=== PATIENT | male | born 1960 | race Caucasian/White ===

== ENCOUNTER 2018-12-23 15:03 | Inpatient (IN) | payer OTHER ==
[2018-12-23] VITALS: BP 130/76
[~2018-12-23] VITALS: Ht 190.5 cm; Wt 98.0 kg
[~2018-12-23 15:03] MED LIST: ASPIRIN81 M2 PO
[2018-12-23 15:05] VITALS: BP 115/75
[2018-12-23] MEDS ORDERED: CARVEDILOL3.125 MG PO (15:10)
[2018-12-23] MEDS ORDERED: FLECAINIDE ACET50 M1 PO (15:10)
[2018-12-23] MEDS ORDERED: CLARITIN10 MG PO (15:10)
[2018-12-23 15:26] LABS: ABSOLUTE BASOPHILS 0.1 thou/uL (0.0-0.2); ABSOLUTE EOSINOPHILS 0.3 thou/uL (0.0-0.7); ABSOLUTE LYMPHOCYTES 1.2 thou/uL (0.8-5.3); ABSOLUTE MONOCYTES 0.6 thou/uL (0.0-1.2); ABSOLUTE NEUTROPHILS 4.3 thou/uL (1.6-8.1); BASOPHILS 1.3 %; EOSINOPHILS 4.3 %; HEMATOCRIT 41.1 % (42.0-52.0); HEMOGLOBIN 13.8 gm/dL (14.0-18.0); LYMPHOCYTES 18.8 %; MCH 30.7 pg (26.0-34.0); MCHC 33.5 g/dL (28.0-37.0); MCV 91.6 fL (80.0-100.0); MPV 10.1 fl. (7.2-11.1); NUCLEATED RBCS 0 /100WBC; PLATELET COUNT* 209 thou/uL (150-400); POLYS 66.6 %; RBC 4.49 mil/uL (4.50-6.00); RDW-CV 13.9 % (10.5-14.5); WBC 6.4 thou/uL (4.0-11.0)
[2018-12-23 15:42] LABS: ALBUMIN 3.9 g/dL (3.4-5.0); ALKALINE PHOSPHATASE 89 U/L (46-116); ANION GAP 7 mmol/L (7-16); BUN 26 mg/dL (7-18); CHLORIDE 104 mmol/L (98-107); CO2 30 mmol/L (21-32); CREATININE 1.5 mg/dL (0.6-1.3); GLUCOSE 159 mg/dL (70-99); LIPASE 111 U/L (73-393); MAGNESIUM 2.1 mg/dL (1.8-2.4); NT-PRO BRAIN NAT PEPTIDE 2521 pg/mL (<300); POTASSIUM 3.9 mmol/L (3.5-5.1); SGOT 30 U/L (15-37); SGPT 74 U/L (30-65); SODIUM 141 mmol/L (136-145); TOTAL BILIRUBIN 0.7 mg/dL (<0.1-1.0); TOTAL PROTEIN 6.9 g/dL (6.4-8.2); TROPONIN-I LEVEL <0.06 ng/mL (<0.06)
[2018-12-23 18:32] VITALS: BP 135/86
[2018-12-23 19:05] VITALS: BP 130/87
[2018-12-24] VITALS (16 sets, daily range): BP systolic 105–121; BP diastolic 57–83
[2018-12-24 05:27] LABS: ABSOLUTE BASOPHILS 0.1 thou/uL (0.0-0.2); ABSOLUTE EOSINOPHILS 0.4 thou/uL (0.0-0.7); ABSOLUTE LYMPHOCYTES 1.4 thou/uL (0.8-5.3); ABSOLUTE MONOCYTES 0.5 thou/uL (0.0-1.2); ABSOLUTE NEUTROPHILS 4.1 thou/uL (1.6-8.1); BASOPHILS 0.8 %; EOSINOPHILS 5.7 %; HEMATOCRIT 39.2 % (42.0-52.0); HEMOGLOBIN 13.2 gm/dL (14.0-18.0); LYMPHOCYTES 21.3 %; MCH 30.5 pg (26.0-34.0); MCHC 33.8 g/dL (28.0-37.0); MCV 90.3 fL (80.0-100.0); MONOCYTES 8.4 %; MPV 10.5 fl. (7.2-11.1); NUCLEATED RBCS 0 /100WBC; PLATELET COUNT* 194 thou/uL (150-400); POLYS 63.8 %; RBC 4.34 mil/uL (4.50-6.00); RDW-CV 13.4 % (10.5-14.5); WBC 6.5 thou/uL (4.0-11.0)
[2018-12-24 05:38] LABS: CALCIUM 8.6 mg/dL (8.5-10.1); CREATININE 1.2 mg/dL (0.6-1.3)
--- NOTE | 2018-12-24 11:30 | EKG ---
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 : 1960 Requested By: Bartolome Woods Order Number: [id number] MD: Jayant Brumfield Measurements Intervals [place] Rate: 126 P: 0 GA: 103 QRS: 85 QRSD: 117 T: 222 QT: 302 QTc: 438 Interpretive Statements aflutter variable block pvc Right bundle branch block Nonspecific T abnormalities, lateral leads Compared to ECG 10/18/2012 11:12:48 Ventricular premature complex(es) now present Right bundle-branch block now present T-wave abnormality now present Sinus rhythm no longer present Sinus arrhythmia no longer present Incomplete right bundle-branch block no longer present Electronically Signed On 12-24-2018 11:29:49 CDT by Jayant Brumfield [email or web address] <ELECTRONICALLY SIGNED> By: Jayant Brumfield MD, [facility] 12/24/18 1129 1507 1507 Jayant Brumfield MD, [facility] /EPI
--- NOTE | 2018-12-24 11:31 | EKG ---
[place] [address] ELECTROCARDIOGRAM REPORT Name: KEVIN MUÑOZ Room: [place] [address] ADM IN M.R.#: [id number] Admission: 12/23/18 Attend Phys: Josr Clark MD Discharge: Date of : 60 Report #: [id number] THIS REPORT FOR: //name// 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 : 1960 Requested By: Josr Clark Order Number: [id number] Reading MD: Jayant Brumfield Measurements Intervals [place] Rate: 62 P: 87 [place]: 183 QRS: 79 QRSD: 121 T: 126 QT: 441 QTc: 448 Interpretive Statements Sinus rhythm Consider left atrial enlargement IVCD, consider atypical RBBB Abnormal T, consider ischemia, lateral leads Compared to ECG 10/18/2012 11:12:48 T-wave abnormality now present Possible ischemia now present Sinus arrhythmia no longer present Incomplete right bundle-branch block no longer present Electronically Signed On 12-24-2018 11:31:02 CDT by Jayant Brumfield [email or web address] <ELECTRONICALLY SIGNED> By: Jayant Brumfield MD, [facility] 12/24/18 1131 0948 0948 Jayant Brumfield MD, [facility] /EPI
--- NOTE | 2018-12-24 11:31 | EKG ---
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: : 1960 Requested By: Kimmie Barton Order Number: [id number] Reading MD: Jayant Brumfield Measurements Intervals [place] Rate: 88 P: 133 [place]: 130 QRS: 90 QRSD: 111 T: 204 QT: 366 QTc: 443 Interpretive Statements Sinus rhythm Multiple ventricular premature complexes Borderline right axis deviation Borderline repolarization abnormality Compared to ECG 10/18/2012 11:12:48 Ventricular premature complex(es) now present Sinus arrhythmia no longer present Incomplete right bundle-branch block no longer present Electronically Signed On 12-24-2018 11:30:51 CDT by Jayant Brumfield [email or web address] <ELECTRONICALLY SIGNED> By: Jayant Brumfield MD, FACC 12/24/18 1130 0 0811 Jayant Brumfield MD, FAC /EPI
[2018-12-24] MEDS ORDERED: XARELTO20 MG PO (17:07)
[2018-12-24] MEDS ORDERED: CARDIZEM CD240 MG PO (17:10)
--- NOTE | 2018-12-26 17:27 | TEE ---
[place] [address] TRANSESOPHAGEAL ECHOCARDIOGRAM Name: KEVIN MUÑOZ Room: [address] IN R.#: [id number] Admission: 12/23/18 Attend Phys: Josr Clark, Discharge: 12/24/18 Date of : 60 Date of Service: 12/26/18 1727 Report #: [id number] THIS REPORT FOR: //name// APPROVED REPORT Study performed: 12/24/2018 08:53:05 EXAM: Transesophageal Echocardiogram Patient Location: In-Patient Room #: [facility] Status: routine BSA: 2.27 HR: 83 bpm BP: 115/76 mmHg Rhythm: Atrial Fibrillation Other Information Study Quality: Good Indications Atrial Fibrillation Echo Enhancing Agent Indication: Rule out Shunt Agent(s) / Amount(s) Used: Agitated Saline 10 cc Procedure After obtaining informed consent, patient underwent transesophageal echo in the [employer]. Type of Sedation : Conscious Sedation Sedation was administered by Vanda Sanchez RN. Sedation start time: 844 Case end Time: 906 Sedation was achieved intravenously with: Versed (4) Fentanyl (100) Transesophageal probe was inserted and advanced into esophagus without difficulty by Jose Zhang MD, FACC. Echo enhancement indication: R/O Septal defect. Echo enhancement agent administered: Agitated Saline The MELANIE was performed without complications. Synchronized Cardioversion acheived with 300 Joules after 1 attempt(s). Rhythm following Synchronized Cardioversion: Normal Sinus Rhythm Throughout the procedure, the blood pressure, pulse oximetry, cardiac rhythm, and rate were monitored. The patient tolerated the procedure without [place] [address] TRANSESOPHAGEAL ECHOCARDIOGRAM Name: KEVIN MUÑOZ Room: [address] IN [facility].#: [id number] Admission: 12/23/18 Attend Phys: Josr Clark, Discharge: 12/24/18 Date of : 60 Date of Service: 12/26/18 1727 Report #: [id number] from conscious sedation was uneventful and vital signs were stable. Left Ventricle The left ventricle is normal size. There is normal LV segmental wall motion. There is normal left ventricular wall thickness. Left ventricular systolic function is normal. LVEF is 55-60%. Right Ventricle The right ventricle is normal size. The right ventricular systolic function is normal. Atria Suggestion of surgical removal of left atrial appendage. No thrombus seen. Interatrial septum is intact without evidence of ASD or PFO. Right atrium is moderately dilated. Aortic Valve The aortic valve is normal in structure. No aortic regurgitation is present. There is no aortic valvular stenosis. Mitral Valve History of mitral valve repair. Mild mitral regurgitation. No evidence of mitral valve stenosis. Mild prolapse of the anterior mitral valve leaflet. Tricuspid Valve The tricuspid valve is normal in structure. Trace tricuspid regurgitation. Pulmonic Valve The pulmonary valve is normal in structure. There is no pulmonic valvular regurgitation. Great Vessels The aortic root is normal in size. Pericardium There is no pericardial effusion. <Conclusion> The left ventricle is normal size. There is normal left ventricular wall thickness. Left ventricular systolic function is normal. LVEF is 55-60%. Interatrial septum is intact [place] [address] TRANSESOPHAGEAL ECHOCARDIOGRAM Name: KEVIN MUÑOZ Room: [address] IN .R.#: [id number] Admission: 12/23/18 Attend Phys: Josr Clark, Discharge: 12/24/18 Date of : 60 Date of Service: 12/26/181726 Report #: [id number] PFO. Suggestion of surgical removal of left atrial appendage. No thrombus seen. History of mitral valve repair. Mild mitral regurgitation. No evidence of mitral valve stenosis. Trace tricuspid regurgitation. <ELECTRONICALLY SIGNED> By: Jose Zhang MD, [facility] 12/26/181726 26 1727 Jose Zhang MD, FACC /INF
== END 2018-12-24 17:45 | disposition home or self-care (01) | DRG 309 ==
LOC: M.ERS 15:03 → M.2W 16:43 → M.TBA-ER 16:43 → M.2W 18:32
PROVIDERS: Emergency Medicine Emergency Medical Services; ADMIT Internal Medicine
PROC: 5A2204Z Restoration of Cardiac Rhythm, Single (ICD-10-PCS; principal; 2018-12-24)
PROC: B24BZZ4 Ultrasonography of Heart with Aorta, Transesophageal (ICD-10-PCS; principal; 2018-12-24)
DX: I48.91 Unspecified atrial fibrillation (principal); N17.9 Acute kidney failure, unspecified; D68.69 Other thrombophilia; I49.9 Cardiac arrhythmia, unspecified; I48.92 Unspecified atrial flutter; Z98.52 Vasectomy status; Z79.82 Long term (current) use of aspirin; Z79.899 Other long term (current) drug therapy

== ENCOUNTER → 2019-08-28 | Outpatient (CLI) | payer OTHER ==
[~2019-08-28] MED LIST changes: +CARDIZEM CD240 MG PO; +CARVEDILOL3.125 MG PO; +CLARITIN10 MG PO; +FLECAINIDE ACET50 M1 PO; +XARELTO20 MG PO
--- NOTE | 2019-08-28 12:58 | EKG ---
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: : 1960 Requested By: Paddy Aguilar Order Number: [id number] Vin MD: Paddy Aguilar Measurements Intervals [place] Rate: 71 P: 108 CT: 167 QRS: 76 QRSD: 125 T: 76 QT: 442 QTc: 481 Interpretive Statements Sinus rhythm IVCD, consider atypical RBBB Compared to ECG 12/24/2018 09:48:11 T-wave abnormality no longer present Possible ischemia no longer present Electronically Signed On 08-28-2019 12:58:10 SURFACE MOUNT TECHNOLOGY OPERATOR by Pdady Aguilar [email or web address] <ELECTRONICALLY SIGNED> By: Paddy Aguilar MD, [facility] 08/28/19 125 1103 1103 Paddy Aguilar MD, [facility] /EPI
--- NOTE | 2019-08-28 16:36 | NUR ---
PATIENT ARRIVED AND HEART RATE AND RHYTHM WAS NOT A FIB OR A FLUTTER AND NO CARDIOVERSION OR MELANIE WAS NECESSARY. EKG PERFORMED AND PATIENT DISCHARGED PER PHYSICIAN.
== END ==
LOC: M.CL 10:33
DX: I48.92 Unspecified atrial flutter (principal); Z53.8 Procedure and treatment not carried out for other reasons; I49.9 Cardiac arrhythmia, unspecified; Z98.890 Other specified postprocedural states; Z79.82 Long term (current) use of aspirin; Z79.899 Other long term (current) drug therapy

== ENCOUNTER → 2019-09-30 | Outpatient (CLI) | payer OTHER ==
[2019-09-30] VITALS (9 sets, daily range): BP systolic 114–127; BP diastolic 72–86
[~2019-09-30] MED LIST changes: +AMIODARONE HCL400 MG PO; -CARDIZEM CD240 MG PO; +DILTIAZEM 24HR240 M1 PO
[2019-09-30 08:03] LABS: HEMATOCRIT 42.6 % (42.0-52.0); HEMOGLOBIN 14.7 gm/dL (14.0-18.0); MCH 31.5 pg (26.0-34.0); MCHC 34.5 g/dL (28.0-37.0); MCV 91.5 fL (80.0-100.0); MPV 8.7 fl. (7.2-11.1); RBC 4.66 mil/uL (4.50-6.00); RDW-CV 13.1 % (10.5-14.5); WBC 5.3 thou/uL (4.0-11.0)
[2019-09-30 08:08] LABS: CALCIUM 8.8 mg/dL (8.5-10.1); CREATININE 1.5 mg/dL (0.6-1.3); POTASSIUM 4.3 mmol/L (3.5-5.1)
[2019-09-30 08:13] LABS: ALBUMIN 4.1 g/dL (3.4-5.0); TOTAL BILIRUBIN 0.7 mg/dL (<0.1-1.0); TOTAL PROTEIN 7.3 g/dL (6.4-8.2)
--- NOTE | 2019-09-30 11:11 | EKG ---
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
--- NOTE | 2019-09-30 16:33 | TEE ---
[place] [address] TRANSESOPHAGEAL ECHOCARDIOGRAM Name: KEVIN MUÑOZ Room: [facility]#: [id number] Admission: 09/30/19 Attend Phys: Jose Zhang, Discharge: Date of : 60 Date of Service: 09/30/19 1632 Report #: [id number] THIS REPORT FOR: //name// APPROVED REPORT Study performed: 09/30/2019 08:54:54 EXAM: Comprehensive 2D, Doppler, and color-flow Echocardiogram Patient Location: Out-Patient Status: routine BSA: 2.20 HR: 75 bpm BP: 124/84 mmHg Rhythm: Atrial Fibrillation Other Information Study Quality: Good Indications Atrial Fibrillation pre-ablation Echo Enhancing Agent Indication: Rule out Shunt Agent(s) / Amount(s) Used: Agitated Saline 10 cc Procedure After obtaining informed consent, patient underwent transesophageal echo in the [employer]. Type of Sedation : Conscious Sedation Sedation was administered by Jacquelyn Small RN. Sedation start time: 933 Case end Time: 1000 Sedation was achieved intravenously with: Versed (3) Fentanyl (75) Transesophageal probe was inserted and advanced into esophagus without difficulty by Jose Zhang MD, FACC. Echo enhancement indication: R/O Septal defect. Echo enhancement agent administered: Agitated Saline The MELANIE was performed without complications. Synchronized Cardioversion acheived with 300 Joules after 1 attempt(s). Rhythm following Synchronized Cardioversion: Normal Sinus Rhythm Throughout the procedure, the blood pressure, pulse oximetry, cardiac rhythm, [place] [address] TRANSESOPHAGEAL ECHOCARDIOGRAM Name: KEVIN MUÑOZ Room: [facility]#: [id number] Admission: 09/30/19 Attend Phys: Jose Zhang, Discharge: Date of : 60 Date of Service: 09/30/19 1632 Report #: [id number] The patient tolerated the procedure without adverse effects. Recovery from conscious sedation was uneventful and vital signs were stable. Left Ventricle The left ventricle is normal size. There is normal LV segmental wall motion. There is normal left ventricular wall thickness. Left ventricular systolic function is normal. LVEF is 55-60%. Right Ventricle The right ventricle is normal size. The right ventricular systolic function is normal. Atria The left atrium size is normal. No thrombus is visualized in the left atrium. History of Appendage surgically removed. The interatrial septum is intact with no evidence for an atrial septal defect. The right atrium size is normal. Aortic Valve The aortic valve is normal in structure. No aortic regurgitation is present. There is no aortic valvular stenosis. Mitral Valve S/P MV Repair. Normal leaflet thickness ans motion. History of mitral valve repair Mild mitral regurgitation. No evidence of mitral valve stenosis. Tricuspid Valve The tricuspid valve is normal in structure. There is no tricuspid valve regurgitation noted. Pulmonic Valve The pulmonary valve is normal in structure. There is no pulmonic valvular regurgitation. Great Vessels The aortic root is normal in size. Pericardium There is no pericardial effusion. <Conclusion> The left ventricle is normal size. There is normal left ventricular wall thickness. Left ventricular [place] [address] TRANSESOPHAGEAL ECHOCARDIOGRAM Name: KEVIN MUÑOZ Room: [facility]#: [id number] Admission: 09/30/19 Attend Phys: Jose Zhang, Discharge: Date of : 60 Date of Service: 09/30/191631 Report #: [id number] LVEF is 55-60%. The left atrium size is normal. No thrombus is visualized in the left atrium. History of Appendage surgically removed. The interatrial septum is intact with no evidence for an atrial septal defect. Mild mitral regurgitation. S/P MV Repair. Normal leaflet thickness ans motion. <ELECTRONICALLY SIGNED> By: Jose Zhang MD, [facility] 09/30/191631 31 1632 Jose Zhang MD, FACC /INF
--- NOTE | 2019-10-01 08:12 | CARD ---
[address] [address] CARDIAC CATH REPORT Name: KEVIN MUÑOZ Room: [facility] M.R.#: [id number] Admission: 09/30/19 Attend Phys: Jose Zhang MD Discharge: Date of : 60 Report #: [id number] THIS REPORT FOR: //name// CC: Kami Zhang PROCEDURE: Transesophageal-guided cardioversion. DESCRIPTION OF PROCEDURE: After informed consent was obtained, the patient was brought to the cardiac catheterization holding area. A transesophageal echocardiogram was performed and was reported separately. Finding no intracardiac thrombus, the patient underwent direct current cardioversion with a single biphasic shock of 300 joules converting from atrial flutter to normal sinus rhythm. The patient tolerated the procedure well without complication. IMPRESSION: 1. Persistent atrial flutter. 2. Successful direct current cardioversion to normal sinus rhythm. <ELECTRONICALLY SIGNED> By: Jose Zhang MD, FACC 10/01/19 0812 1741 0040[facility]fun[facility]ayo Zhang MD, FACC /nt
== END | disposition home or self-care (01) ==
LOC: M.LAB 07:30 → M.CL 10:00
PROVIDERS: Internal Medicine Cardiovascular Disease
DX: I34.0 Nonrheumatic mitral (valve) insufficiency (principal); I48.91 Unspecified atrial fibrillation; I48.92 Unspecified atrial flutter; I51.7 Cardiomegaly; R91.8 Other nonspecific abnormal finding of lung field; Z98.890 Other specified postprocedural states; Z79.899 Other long term (current) drug therapy; Z79.01 Long term (current) use of anticoagulants; Z79.82 Long term (current) use of aspirin; Z98.52 Vasectomy status